=== PATIENT | male | born 1965 | race Caucasian/White ===

== ENCOUNTER 2021-11-20 12:03 | Observation (INO) ==
[2021-11-20] MEDS ORDERED: 0.9 % Sodium Chloride 1,000 ML IVC ONE (12:14)
[2021-11-20] MEDS ORDERED: Pantoprazole 40 MG VIAL IVP ONE (12:14)
[2021-11-20] MEDS ORDERED: Iopamidol - 370 500 ML MLS IVP ONE (12:16)
[2021-11-20 12:38] LABS: Basophils % 0.2 %; Hematocrit 38.7 % (37.5-50.1); Hemoglobin 12.9 g/dL (12.9-16.9); Immature Granulocytes % 0.4 % (0-4); Lymphocytes # 0.9 K/mcL (0.6-4.6); Lymphocytes % 4.5 %; Mean Corpuscular HGB Conc 33.3 g/dL (31.6-35.5); Mean Corpuscular Hemoglobin 33.2 pg (28.0-33.3); Mean Corpuscular Volume 99.5 fL (83.0-100.0); Mean Platelet Volume 8.9 fL (9.4-12.4); Monocytes # 1.2 K/mcL (0.0-1.3); Monocytes % 6.1 %; Neutrophils # 17.1 K/mcL (1.6-8.9); Platelet Count 340 K/mcL (140-400); Red Blood Count 3.89 M/mcL (4.19-5.50); Red Cell Distribution Width 14.5 % (11.5-14.5); Segmented Neutrophils % 88.8 %; White Blood Count 19.2 K/mcL (4.3-11.1)
[2021-11-20 12:49] LABS: INR 1.1; Prothrombin Time 12.8 Seconds (9.4-12.1)
[2021-11-20] MEDS ORDERED: Octreotide 50 MCG/ML INJ IVP ONE (12:51)
[2021-11-20] MEDS ORDERED: cefTRIAXone 1,000 MG in 0.9 % Sodium Chloride Mini Bag 100 ML IVPB STA (12:51)
[2021-11-20 12:58] LABS: Alanine Aminotransferase 14 Units/L (7-52); Albumin 4.2 g/dL (3.5-5.7); Albumin/Globulin Ratio 1.4 (1.1-2.2); Alkaline Phosphatase 53 Units/L (34-104); Aspartate Amino Transferase 14 Units/L (13-39); BUN/Creatinine Ratio 18 (6-26); Bilirubin,Total 0.3 mg/dL (0.3-1.0); Blood Urea Nitrogen 25 mg/dL (6-20); Calcium 9.1 mg/dL (8.6-10.3); Carbon Dioxide 24 mEq/L (23-29); Chloride 102 mEq/L (98-107); Globulin 2.9 g/dL (2.4-3.5); Glucose 220 mg/dL (70-105); Lipase 13 Units/L (11-82); Osmolality,Calculated 291 (280-300); Potassium 4.6 mEq/L (3.5-5.1); Sodium 135 mEq/L (136-145); Total Protein 7.1 g/dL (6.4-8.9); eGFR For African Americans > 60 (> 60); eGFR For Non-African Americans 53 (> 60)
[2021-11-20] MEDS ORDERED: Ampicillin/Sulbactam 3,000 MG in 0.9 % Sodium Chloride Mini Bag 100 ML IVPB ONE (14:43)
[2021-11-20] MEDS ORDERED: MetroNIDAZOLE 500 MG/100 ML 500 MG/100 ML BAG IVPB ONE (15:03)
[2021-11-20] MEDS ORDERED: *HR* FentaNYL (PF) 100 MCG/2 ML VIAL IVP STA (15:04)
[2021-11-20] MEDS ORDERED: Ondansetron 4 MG/2 ML VIAL IVP ONE (15:04)
[2021-11-20] MEDS ORDERED: Acetaminophen 325 MG TABLET PO PRN (15:47)
[2021-11-20] MEDS ORDERED: Ondansetron 4 MG/2 ML VIAL IVP PRN (15:47)
[2021-11-20] MEDS ORDERED: *HR* HYDROcodone/Acet 5/325 mg TABLET PO PRN (15:47)
[2021-11-20] MEDS ORDERED: Naloxone 0.4 MG/ML INJ IVP PRN (15:47)
[2021-11-20] MEDS ORDERED: 0.9 % Sodium Chloride 1,000 ML IVC SCH (16:00)
[2021-11-20] MEDS: Nicotine 14 MG PATCH.TD24 TD SCH (17:41)
[2021-11-20] MEDS: Pantoprazole 40 MG VIAL IVP SCH (17:56)
[2021-11-20 18:39] LABS: Hemoglobin 13.2 g/dL (12.9-16.9)
[2021-11-20] MEDS ORDERED: ALPRAZolam 0.5 MG TABLET PO PRN (22:43)
[2021-11-20] MEDS ORDERED: NON-FORMULARY MEDICATION 1 EACH EACH (Bupropion Hcl [Wellbutrin Xl] 300 MG Tab.Er.24h) PO SCH (22:45)
[2021-11-20] MEDS ORDERED: traZODone 50 MG TABLET PO PRN (22:56)
[2021-11-20] MEDS ORDERED: Morphine Sulfate Oral CONC 10 MG/0.5 ML ORAL.SYG SL ONE (23:19)
[2021-11-20] MEDS: rOPINIRole 1 MG TABLET PO SCH (23:39)
[2021-11-21] MEDS: BuPROPion SR (12 HR) 100 MG TABLET PO SCH ×3 (01:31→20:25)
[2021-11-21] MEDS: MetroNIDAZOLE 500 MG/100 ML 500 MG/100 ML BAG IVPB SCH ×3 (01:31→15:24)
[2021-11-21] MEDS: Topiramate 25 MG TABLET PO SCH ×3 (01:31→20:25)
[2021-11-21] MEDS: clonazePAM 1 MG TABLET PO SCH ×4 (01:32→20:25)
[2021-11-21 05:14] LABS: Basophils # 0.1 K/mcL (0.0-0.2); Basophils % 0.3 %; Eosinophils # 0.3 K/mcL (0.0-0.6); Eosinophils % 1.6 %; Hemoglobin 11.7 g/dL (12.9-16.9); Immature Granulocytes % 0.4 % (0-4); Lymphocytes # 2.4 K/mcL (0.6-4.6); Lymphocytes % 13.6 %; Mean Corpuscular HGB Conc 33.4 g/dL (31.6-35.5); Mean Corpuscular Hemoglobin 33.3 pg (28.0-33.3); Mean Corpuscular Volume 99.7 fL (83.0-100.0); Mean Platelet Volume 9.1 fL (9.4-12.4); Monocytes # 1.8 K/mcL (0.0-1.3); Monocytes % 10.1 %; Neutrophils # 13.2 K/mcL (1.6-8.9); Platelet Count 316 K/mcL (140-400); Red Blood Count 3.51 M/mcL (4.19-5.50); Red Cell Distribution Width 14.7 % (11.5-14.5); White Blood Count 17.8 K/mcL (4.3-11.1)
[2021-11-21 05:34] LABS: BUN/Creatinine Ratio 14 (6-26); Blood Urea Nitrogen 18 mg/dL (6-20); Carbon Dioxide 23 mEq/L (23-29); Chloride 106 mEq/L (98-107); Glucose 173 mg/dL (70-105); Magnesium 1.6 mg/dL (1.6-2.6); Osmolality,Calculated 286 (280-300); Phosphorous 1.9 mg/dL (2.7-4.5); Potassium 3.9 mEq/L (3.5-5.1); Sodium 135 mEq/L (136-145); eGFR For African Americans > 60 (> 60); eGFR For Non-African Americans 58 (> 60)
[2021-11-21] MEDS: Pantoprazole 40 MG VIAL IVP SCH ×2 (05:34→17:40)
[2021-11-21] MEDS: Nicotine 14 MG PATCH.TD24 TD SCH (08:36)
[2021-11-21] MEDS: valACYclovir 500 MG TABLET PO SCH (08:37)
[2021-11-21] MEDS: Vilazodone Hcl [Viibryd] 40 MG PO SCH (08:38)
[2021-11-21] MEDS ORDERED: Simethicone 40 MG/0.6 ML MLS IR ONE (10:45)
[2021-11-21] MEDS ORDERED: Lidocaine HCL 4 ML Topical Solution (Laryng-O-Jet Kit Sterile Pak) TP ONE (11:24)
[2021-11-21] MEDS ORDERED: *HR* Succinylcholine 200 MG/10 ML VIAL IVP ONE (11:24)
[2021-11-21] MEDS ORDERED: *HR* Rocuronium Bromide 50 MG/5 ML VIAL ONE (11:24)
[2021-11-21] MEDS ORDERED: *HR* FentaNYL (PF) 100 MCG/2 ML VIAL ONE (11:24)
[2021-11-21] MEDS ORDERED: Lidocaine -MPF 2% 5 ML VIAL ONE (11:24)
[2021-11-21] MEDS ORDERED: *HR* Propofol 200 MG/20 ML VIAL IVP ONE (11:24)
[2021-11-21] MEDS ORDERED: Ondansetron 4 MG/2 ML VIAL ONE (11:24)
[2021-11-21] MEDS ORDERED: cefTRIAXone 1,000 MG in Water for inj. (sterile) 10 ML IVP SCH (14:00)
[2021-11-21 15:11] LABS: Adenovirus F 40/41 PCR Not detected (Not detect); Astrovirus PCR Not detected (Not detect); C.difficile Toxin A/B Gene PCR Not detected (Not detect); Campylobacter by PCR Not detected (Not detect); Cryptosporidium by PCR Not detected (Not detect); Cyclospora cayetanensis PCR Not detected (Not detect); E. coli O157 by PCR Not detected (Not detect); Entamoeba histolytica PCR Not detected (Not detect); Enteroaggregative E.coli(EAEC) Not detected (Not detect); Enteropathogenic E.coli(EPEC) Not detected (Not detect); Enterotoxigenic E.coli (ETEC) Not detected (Not detect); Giardia lamblia PCR Not detected (Not detect); Norovirus GI/GII PCR Not detected (Not detect); Plesiomonas shigelloides PCR Not detected (Not detect); Rotavirus A PCR Not detected (Not detect); Salmonella PCR Not detected (Not detect); Sapovirus PCR Not detected (Not detect); Shig/EnteroinvasiveE coli EIEC Not detected (Not detect); Shigalike tox-prod E coli STEC Not detected (Not detect); Vibrio PCR Not detected (Not detect); Vibrio cholerae PCR Not detected (Not detect); Yersinia enterocolitica PCR Not detected (Not detect)
[2021-11-21] MEDS: Morphine Sulfate 2 MG/ML SYRINGE IVP PRN ×2 (15:15→19:02)
[2021-11-21] MEDS ORDERED: SODIUM CHLORIDE/NAHCO3/KCL/PEG 4,000 ML SOLN.RECON PO ONE (17:00)
[2021-11-21] MEDS: rOPINIRole 1 MG TABLET PO SCH (20:25)
[2021-11-22] MEDS: Morphine Sulfate 2 MG/ML SYRINGE IVP PRN ×4 (00:15→16:18)
[2021-11-22] MEDS: MetroNIDAZOLE 500 MG/100 ML 500 MG/100 ML BAG IVPB SCH ×4 (01:50→23:09)
[2021-11-22 02:09] LABS: Hemoglobin 11.6 g/dL (12.9-16.9); Immature Granulocytes % 0.5 % (0-4); Mean Corpuscular HGB Conc 33.1 g/dL (31.6-35.5); Mean Corpuscular Hemoglobin 32.9 pg (28.0-33.3); Mean Corpuscular Volume 99.2 fL (83.0-100.0); Mean Platelet Volume 9.3 fL (9.4-12.4); Platelet Count 291 K/mcL (140-400); Red Blood Count 3.53 M/mcL (4.19-5.50); Red Cell Distribution Width 14.6 % (11.5-14.5); Segmented Neutrophils % 79.2 %; White Blood Count 21.3 K/mcL (4.3-11.1)
[2021-11-22 02:10] LABS: Basophils % 0.2 %; Lymphocytes # 2.6 K/mcL (0.6-4.6); Monocytes # 1.7 K/mcL (0.0-1.3); Monocytes % 8.1 %; Neutrophils # 16.9 K/mcL (1.6-8.9)
[2021-11-22 02:33] LABS: BUN/Creatinine Ratio 10 (6-26); Blood Urea Nitrogen 12 mg/dL (6-20); Calcium 8.6 mg/dL (8.6-10.3); Carbon Dioxide 21 mEq/L (23-29); Chloride 103 mEq/L (98-107); Glucose 161 mg/dL (70-105); Osmolality,Calculated 285 (280-300); Potassium 3.8 mEq/L (3.5-5.1); Sodium 136 mEq/L (136-145); eGFR For African Americans > 60 (> 60); eGFR For Non-African Americans > 60 (> 60)
[2021-11-22] MEDS: Pantoprazole 40 MG VIAL IVP SCH ×2 (04:49→18:04)
[2021-11-22] MEDS: Nicotine 14 MG PATCH.TD24 TD SCH (08:09)
[2021-11-22] MEDS: clonazePAM 1 MG TABLET PO SCH ×3 (08:09→20:27)
[2021-11-22] MEDS: Topiramate 25 MG TABLET PO SCH ×2 (08:09→20:27)
[2021-11-22] MEDS: Vilazodone Hcl [Viibryd] 40 MG PO SCH ×2 (08:17→15:10)
[2021-11-22] MEDS: BuPROPion SR (12 HR) 100 MG TABLET PO SCH ×2 (08:21→20:28)
[2021-11-22] MEDS: valACYclovir 500 MG TABLET PO SCH (08:21)
[2021-11-22] MEDS ORDERED: *HR* Propofol 200 MG/20 ML VIAL IVP ONE ×2 (13:06→14:09)
[2021-11-22] MEDS ORDERED: Lidocaine -MPF 2% 5 ML VIAL ONE (13:06)
[2021-11-22] MEDS ORDERED: Simethicone 40 MG/0.6 ML MLS IR ONE (13:28)
[2021-11-22] MEDS ORDERED: hydrOXYzine pamoate 25 MG CAPSULE PO PRN (16:06)
[2021-11-22] MEDS ORDERED: *HR* Dextrose 50 % in Water (Syg) 50 ML SYRINGE IVP PRN (16:07)
[2021-11-22] MEDS ORDERED: Dextrose Gel 15 GM/37.5 ML TUBE PO PRN ×2 (16:07)
[2021-11-22] MEDS ORDERED: D5% in Water 1,000 ML IVC PRN (16:07)
[2021-11-22] MEDS: Insulin LISPRO 300 UNITS/3 ML VIAL SUBQ SCH (18:05)
[2021-11-22] MEDS: rOPINIRole 1 MG TABLET PO SCH (20:28)
[2021-11-22] MEDS ORDERED: Insulin LISPRO 300 UNITS/3 ML VIAL SUBQ SCH (21:00)
[2021-11-22] MEDS ORDERED: rOPINIRole 1 MG TABLET PO SCH (21:00)
[2021-11-22] MEDS: *HR* HYDROcodone/Acet 5/325 mg TABLET PO PRN (22:10)
[2021-11-23 03:22] LABS: Basophils # 0.1 K/mcL (0.0-0.2); Basophils % 0.5 %; Eosinophils # 0.6 K/mcL (0.0-0.6); Eosinophils % 4.5 %; Immature Granulocytes % 0.5 % (0-4); Lymphocytes # 3.3 K/mcL (0.6-4.6); Lymphocytes % 25.4 %; Mean Corpuscular HGB Conc 33.1 g/dL (31.6-35.5); Mean Corpuscular Hemoglobin 33.2 pg (28.0-33.3); Mean Corpuscular Volume 100.3 fL (83.0-100.0); Mean Platelet Volume 9.4 fL (9.4-12.4); Monocytes # 1.2 K/mcL (0.0-1.3); Monocytes % 9.6 %; Neutrophils # 7.6 K/mcL (1.6-8.9); Nucleated Red Blood Cells 0.2 /100 WBC (0); Platelet Count 242 K/mcL (140-400); Red Blood Count 2.89 M/mcL (4.19-5.50); Red Cell Distribution Width 14.6 % (11.5-14.5); Segmented Neutrophils % 59.5 %; White Blood Count 12.8 K/mcL (4.3-11.1)
[2021-11-23 03:27] LABS: Hemoglobin 9.6 g/dL (12.9-16.9)
[2021-11-23 03:45] LABS: Calcium 8.2 mg/dL (8.6-10.3); Potassium 3.7 mEq/L (3.5-5.1)
[2021-11-23 04:16] LABS: Estimated Average Glucose 148 mg/dl; Hemoglobin A1C 6.8 %
[2021-11-23] MEDS: *HR* HYDROcodone/Acet 5/325 mg TABLET PO PRN ×2 (04:36→10:54)
[2021-11-23] MEDS: Pantoprazole 40 MG VIAL IVP SCH (05:44)
[2021-11-23] MEDS ORDERED: amLODIPine 5 MG TABLET PO SCH (09:00)
[2021-11-23] MEDS ORDERED: lisinopriL 10 MG TABLET PO SCH (09:00)
[2021-11-23] MEDS: Topiramate 25 MG TABLET PO SCH (09:15)
[2021-11-23] MEDS: BuPROPion SR (12 HR) 100 MG TABLET PO SCH (09:16)
[2021-11-23] MEDS: Nicotine 14 MG PATCH.TD24 TD SCH (09:17)
[2021-11-23] MEDS: valACYclovir 500 MG TABLET PO SCH (09:17)
[2021-11-23] MEDS: clonazePAM 1 MG TABLET PO SCH ×2 (09:17→14:50)
[2021-11-23] MEDS: MetroNIDAZOLE 500 MG/100 ML 500 MG/100 ML BAG IVPB SCH (09:18)
[2021-11-23] MEDS: Vilazodone Hcl [Viibryd] 40 MG PO SCH (09:22)
[2021-11-23] MEDS: Insulin LISPRO 300 UNITS/3 ML VIAL SUBQ SCH ×2 (09:28→12:17)
[2021-11-23] MEDS: metroNIDAZOLE 500 MG TABLET PO SCH ×2 (10:13→14:50)
[2021-11-23 14:27] VITALS: BP 107/65; PULSE 76; TEMP 98; O2SAT 94
== END 2021-11-23 15:00 | disposition home or self-care (01) ==
LOC: EMEROOARM 12:03 → 3ANU 12:03 → SUATTDRO 16:03 → 3ANU 16:57
PROVIDERS: ADMIT Internal Medicine; ATTEND Hospitalist
PROC: ENDOCBX (2021-11-22 13:00)